=== PATIENT | male | born 1990 | race African-American/Black ===

== ENCOUNTER 2017-09-28 18:16 | Emergency (ER) | payer OTHER ==
[~2017-09-28] VITALS: Ht 175.3 cm; Wt 63.5 kg
[~2017-09-28 18:16] MED LIST: KEFLEX500 MG PO; NAPROSYN375 MG PO; NOHOMEMEDICATIONS; NORCO 5-325 TA1 EACH PO
== END 2017-09-28 18:40 | disposition home or self-care (01) ==
LOC: ER 18:16
DX: M79.604 Pain in right leg (principal); M79.605 Pain in left leg; F17.210 Nicotine dependence, cigarettes, uncomplicated